=== PATIENT | female | born 1955 | race Native Hawaiian/Other Pacific Islander ===

== ENCOUNTER 2025-09-13 21:35 | Inpatient (IN) | payer MEDICARE ==
[~2025-09-13] VITALS: Ht 152.4 cm; Wt 63.5 kg
[2025-09-13] MEDS ORDERED: 0.9% SODIUM CHLORIDE 10 ML SYRINGE IVP PRN (21:45)
[2025-09-13 22:22] LABS: PLATELET COUNT (AUTO) 315 K/uL (150-450); RED BLOOD CELL COUNT(AUTO) 4.76 MIL/uL (4.00-5.20); RED CELL DISTRIBUTION WIDTH 14.5 % (11.5-14.5); WHITE BLOOD COUNT (AUTO) 11.1 K/uL (4.5-11.0)
[2025-09-13 22:23] LABS: CALCIUM, TOTAL 8.2 mg/dL (8.8-10.5); CREATININE 1.54 mg/dL (0.60-1.30); GLOMERULAR FILTR. RATE CALC 33.0 mL/min (>60); GLUCOSE,RANDOM 112.0 mg/dL (70-110); SODIUM SERUM 139.0 mmol/L (136-145); UREA NITROGEN, BLOOD 59.0 mg/dL (7-18)
[2025-09-13] MEDS: CefTRIAXone 1 GM/DEXTROSE 50 ML IV ONE (22:27)
[2025-09-13 22:31] LABS: LACTIC ACID 1.5 mmol/L (0.4-2.0)
[2025-09-13 22:32] LABS: TROPONIN I-HIGH SENSITIVITY 160 ng/L (<51)
[2025-09-13] MEDS: SODIUM CHLORIDE 0.9% 1,400 ML IV ONE (22:35)
[2025-09-13 23:22] LABS: APPEARANCE,URINE HAZY (CLEAR); GLUCOSE, URINE (UA) NEGATIVE (NEGATIVE); LEUKOCYTE ESTERASE ,URINE MODERATE (NEGATIVE); NITRATE,URINE NEGATIVE (NEGATIVE); OCCULT BLOOD,URINE SMALL (NEGATIVE); SPECIFIC GRAVITIY, URINE 1.014 (1.003-1.030)
[2025-09-13 23:33] LABS: SQUAMOUS EPITHELIAL CELL,UR Few /LPF (None Seen)
[2025-09-13 23:38] LABS: SULFOSALICYLIC ACID,URINE 4+ (Negative)
[2025-09-13] MEDS ORDERED: ONDANSETRON HCL 4 MG/2 ML VIAL IVP PRN (23:45)
[2025-09-13] MEDS ORDERED: ACETAMINOPHEN 325 MG TABLET PO PRN (23:45)
[2025-09-14] MEDS: HEPARIN SODIUM,PORCINE 5,000 UNITS/ML VIAL SQ SCH (00:38)
[2025-09-14] MEDS: RINGERS SOLUTION,LACTATED 1,000 ML IV SCH (00:41)
[2025-09-14] MEDS: ASPIRIN 81 MG CHEWABLE TABLET PO ONE (00:55)
[2025-09-14 01:55] LABS: TROPONIN I-HIGH SENSITIVITY 159 ng/L (<51)
[2025-09-14 05:31] LABS: PLATELET COUNT (AUTO) 267 K/uL (150-450); RED BLOOD CELL COUNT(AUTO) 4.17 MIL/uL (4.00-5.20); RED CELL DISTRIBUTION WIDTH 14.3 % (11.5-14.5); WHITE BLOOD COUNT (AUTO) 11.5 K/uL (4.5-11.0)
[2025-09-14 05:43] LABS: CALCIUM, TOTAL 7.6 mg/dL (8.8-10.5); CREATININE 1.35 mg/dL (0.60-1.30); GLOMERULAR FILTR. RATE CALC 39.0 mL/min (>60); GLUCOSE,RANDOM 172.0 mg/dL (70-110); SODIUM SERUM 142.0 mmol/L (136-145); UREA NITROGEN, BLOOD 57.0 mg/dL (7-18)
[2025-09-14 06:06] VITALS: BP 159/67; PULSE 85; RESP 18; TEMP 98.2; O2SAT 99
[2025-09-14 07:38] VITALS: BP 156/72; PULSE 88; RESP 19; TEMP 98; O2SAT 98
[2025-09-14] MEDS: CLOPIDOGREL BISULFATE 75 MG TABLET PO SCH (09:00)
[2025-09-14] MEDS: DOCUSATE SODIUM 100 MG CAPSULE PO SCH (09:00)
[2025-09-14] MEDS: ASPIRIN 81 MG CHEWABLE TABLET PO SCH (09:00)
[2025-09-14 12:03] VITALS: BP 148/68; PULSE 82; RESP 18; TEMP 98; O2SAT 98
[2025-09-14] MEDS ORDERED: RINGERS SOLUTION,LACTATED 1,000 ML IV SCH (14:45)
[2025-09-14 20:28] VITALS: BP 158/87; PULSE 99; RESP 18; TEMP 97.7; O2SAT 97
[2025-09-14] MEDS: SODIUM BICARBONATE 50 MEQ in SODIUM CHLORIDE 0.45% 1,000 ML IV ONE (20:28)
[2025-09-14] MEDS: ATORVASTATIN CALCIUM 40 MG TABLET PO SCH (20:29)
[2025-09-14] MEDS ORDERED: SODIUM CHLORIDE 0.9% 250 ML IV ONE (20:44)
[2025-09-14] MEDS: CefTRIAXone 1 GM/DEXTROSE 50 ML IV SCH (22:16)
[2025-09-15] VITALS (9 sets, daily range): BP systolic 149–190; BP diastolic 59–87; PULSE 76–105; RESP 16–18; TEMP 97.5–98.8; O2SAT 95–98
[2025-09-15] MEDS: LABETALOL HCL 5 MG/ML 20 ML VIAL IVP PRN (05:01)
[2025-09-15 06:44] LABS: PLATELET COUNT (AUTO) 264 K/uL (150-450); RED BLOOD CELL COUNT(AUTO) 4.04 MIL/uL (4.00-5.20); RED CELL DISTRIBUTION WIDTH 14.6 % (11.5-14.5); WHITE BLOOD COUNT (AUTO) 11.8 K/uL (4.5-11.0)
[2025-09-15 06:46] LABS: CALCIUM, TOTAL 8.1 mg/dL (8.8-10.5); CREATININE 1.48 mg/dL (0.60-1.30); GLOMERULAR FILTR. RATE CALC 35.0 mL/min (>60); GLUCOSE,RANDOM 223.0 mg/dL (70-110); SODIUM SERUM 145.0 mmol/L (136-145); UREA NITROGEN, BLOOD 53.0 mg/dL (7-18)
[2025-09-15 06:51] LABS: CHOL/HDL RATIO 4.3 (3.9-5.7); LDL CHOL (CALC.) 123.0 mg/dL (0-130)
[2025-09-15] MEDS: RINGERS SOLUTION,LACTATED 1,000 ML IV ONE (15:59)
[2025-09-15] MEDS ORDERED: NITROGLYCERIN 2% (1 GM=INCH) OINTMENT PACKET TP SCH (16:00)
[2025-09-15] MEDS: NITROGLYCERIN 2% (1 GM=INCH) OINTMENT PACKET TP SCH (16:12)
[2025-09-15 18:16] LABS: LACTIC ACID 0.9 mmol/L (0.4-2.0)
[2025-09-15] MEDS: CLOPIDOGREL BISULFATE 75 MG TABLET PO SCH (21:38)
[2025-09-15] MEDS: ASPIRIN 81 MG CHEWABLE TABLET PO SCH (21:38)
[2025-09-15] MEDS: ATORVASTATIN CALCIUM 40 MG TABLET PO SCH (21:38)
[2025-09-16] VITALS (9 sets, daily range): BP systolic 143–182; BP diastolic 61–90; PULSE 85–109; RESP 16–19; TEMP 98.1–98.8; O2SAT 94–99
[2025-09-16] MEDS ORDERED: DEXTROSE 50%-WATER 25 GM/50 ML SYRINGE IVP PRN
[2025-09-16] MEDS: RINGERS SOLUTION,LACTATED 1,000 ML IV ONE (00:55)
[2025-09-16 06:45] LABS: PHOSPHORUS 1.9 mg/dL (2.5-4.9)
[2025-09-16 06:46] LABS: CALCIUM, TOTAL 8.6 mg/dL (8.8-10.5); CREATININE 1.12 mg/dL (0.60-1.30); GLOMERULAR FILTR. RATE CALC 48.0 mL/min (>60); GLUCOSE,RANDOM 250.0 mg/dL (70-110); PLATELET COUNT (AUTO) 297 K/uL (150-450); RED BLOOD CELL COUNT(AUTO) 3.78 MIL/uL (4.00-5.20); RED CELL DISTRIBUTION WIDTH 14.7 % (11.5-14.5); SODIUM SERUM 150.0 mmol/L (136-145); UREA NITROGEN, BLOOD 34.0 mg/dL (7-18); WHITE BLOOD COUNT (AUTO) 12.7 K/uL (4.5-11.0)
[2025-09-16] MEDS: INSULIN LISPRO 100 UNITS/ML SQ PRN (06:46)
[2025-09-16] MEDS: SODIUM CHLORIDE 0.45% 1,000 ML IV SCH (08:46)
[2025-09-16 11:02] LABS: APPEARANCE,URINE CLEAR (CLEAR); GLUCOSE, URINE (UA) >=1000 mg/dL (NEGATIVE); LEUKOCYTE ESTERASE ,URINE NEGATIVE (NEGATIVE); NITRATE,URINE NEGATIVE (NEGATIVE); OCCULT BLOOD,URINE SMALL (NEGATIVE); SPECIFIC GRAVITIY, URINE 1.017 (1.003-1.030)
[2025-09-16 11:10] LABS: CREATININE,URINE RANDOM 61.3 mg/dL (30.0-125.0); PROTEIN,URINE RANDOM 147 mg/dL (0-11.9); UREA NITROGEN,URINE RANDOM 969 mg/dL (350-1000)
[2025-09-16 11:14] LABS: ALCOHOL, URINE DRUG SCREEN NEGATIVE (NEGATIVE); AMPHET/METH SCREEN,URINE NEGATIVE (NEGATIVE); BARBITURATE SCREEN, URINE NEGATIVE (NEGATIVE); CANNABINOID SCREEN,URINE NEGATIVE (NEGATIVE); COCAINE SCREEN,URINE NEGATIVE (NEGATIVE); METHADONE SCREEN, URINE NEGATIVE (NEGATIVE)
[2025-09-16 11:15] LABS: PH,URINE DRUG SCREEN 5.5 (5.0-8.0)
[2025-09-16 11:21] LABS: SULFOSALICYLIC ACID,URINE 1+ (Negative)
[2025-09-16 11:22] LABS: SQUAMOUS EPITHELIAL CELL,UR Few /LPF (None Seen)
[2025-09-16] MEDS: METOPROLOL TARTRATE 5 MG/5 ML VIAL IVP SCH (17:45)
[2025-09-16] MEDS: LORazepam 2 MG/ML VIAL IVP ONE (17:46)
[2025-09-16 20:16] LABS: GLUCOMETER DEV NAME(LOC) 5N.2C; GLUCOSE,POINT OF CARE 220 MG/DL (70-110)
[2025-09-16 20:16] LABS: GLUCOMETER DEV NAME(LOC) 5N.1D; GLUCOSE,POINT OF CARE 236 MG/DL (70-110)
[2025-09-16 20:16] LABS: GLUCOMETER DEV NAME(LOC) 5N.1D; GLUCOSE,POINT OF CARE 202 MG/DL (70-110)
[2025-09-16] MEDS: NITROGLYCERIN 2% (1 GM=INCH) OINTMENT PACKET TP SCH (20:53)
[2025-09-17 00:22] VITALS: BP 165/100; PULSE 98; RESP 18; TEMP 98.4; O2SAT 93
[2025-09-17 01:11] LABS: GLUCOMETER DEV NAME(LOC) 5N.1D; GLUCOSE,POINT OF CARE 186 MG/DL (70-110)
[2025-09-17 04:29] VITALS: BP 155/89; PULSE 82; RESP 16; TEMP 98.1; O2SAT 94
[2025-09-17 06:00] LABS: PLATELET COUNT (AUTO) 270 K/uL (150-450); RED BLOOD CELL COUNT(AUTO) 3.76 MIL/uL (4.00-5.20); RED CELL DISTRIBUTION WIDTH 14.9 % (11.5-14.5); WHITE BLOOD COUNT (AUTO) 9.4 K/uL (4.5-11.0)
[2025-09-17 06:28] LABS: CALCIUM, TOTAL 8.3 mg/dL (8.8-10.5); CREATININE 0.78 mg/dL (0.60-1.30); GLOMERULAR FILTR. RATE CALC > 60 mL/min (>60); GLUCOSE,RANDOM 229 mg/dL (70-110); SODIUM SERUM 147 mmol/L (136-145); UREA NITROGEN, BLOOD 24 mg/dL (7-18)
[2025-09-17 07:43] VITALS: BP 153/91; PULSE 75; RESP 16; TEMP 98.4; O2SAT 96
[2025-09-17 10:16] LABS: GLUCOMETER DEV NAME(LOC) 5N.1D; GLUCOSE,POINT OF CARE 225 MG/DL (70-110)
[2025-09-17 11:30] VITALS: BP 113/64; PULSE 76; RESP 16; TEMP 98.2; O2SAT 95
[2025-09-17 15:47] VITALS: BP 169/80; PULSE 74; RESP 18; TEMP 97.9; O2SAT 94
[2025-09-17 20:20] VITALS: BP 123/78; PULSE 74; RESP 16; TEMP 98.1; O2SAT 95
[2025-09-17 21:26] LABS: GLUCOMETER DEV NAME(LOC) 5N.1D; GLUCOSE,POINT OF CARE 160 MG/DL (70-110)
[2025-09-17 22:45] LABS: GLUCOMETER DEV NAME(LOC) 5N.1D; GLUCOSE,POINT OF CARE 164 MG/DL (70-110)
[2025-09-18] VITALS (9 sets, daily range): BP systolic 112–172; BP diastolic 66–95; PULSE 73–105; RESP 17–20; TEMP 97.5–98.6; O2SAT 96–99
[2025-09-18 02:51] LABS: GLUCOMETER DEV NAME(LOC) 5N.2C; GLUCOSE,POINT OF CARE 184 MG/DL (70-110)
[2025-09-18 02:51] LABS: GLUCOMETER DEV NAME(LOC) 5N.2C; GLUCOSE,POINT OF CARE 151 MG/DL (70-110)
[2025-09-18 02:51] LABS: GLUCOMETER DEV NAME(LOC) 5N.2C; GLUCOSE,POINT OF CARE 175 MG/DL (70-110)
[2025-09-18 05:50] LABS: GLUCOMETER DEV NAME(LOC) 5N.2C; GLUCOSE,POINT OF CARE 182 MG/DL (70-110)
[2025-09-18 06:14] LABS: PLATELET COUNT (AUTO) 294 K/uL (150-450); RED BLOOD CELL COUNT(AUTO) 4.02 MIL/uL (4.00-5.20); RED CELL DISTRIBUTION WIDTH 14.7 % (11.5-14.5); WHITE BLOOD COUNT (AUTO) 9.3 K/uL (4.5-11.0)
[2025-09-18 06:20] LABS: CALCIUM, TOTAL 8.2 mg/dL (8.8-10.5); CREATININE 0.71 mg/dL (0.60-1.30); GLOMERULAR FILTR. RATE CALC > 60 mL/min (>60); GLUCOSE,RANDOM 187 mg/dL (70-110); SODIUM SERUM 143 mmol/L (136-145); UREA NITROGEN, BLOOD 24 mg/dL (7-18)
[2025-09-18 06:29] LABS: PHOSPHORUS 2.2 mg/dL (2.5-4.9)
[2025-09-18] MEDS: DOCUSATE SODIUM 100 MG/10 ML LIQUID UDCUP NG SCH (11:21)
[2025-09-18] MEDS: SODIUM,POTASSIUM PHOSPHATES POWDER PACKET PO SCH (11:21)
[2025-09-18] MEDS: MAGNESIUM SULFATE 2 GM/WATER 50 ML IV ONE (11:22)
[2025-09-18] MEDS ORDERED: ACETAMINOPHEN 325 MG TABLET NG PRN (11:45)
[2025-09-18 15:31] LABS: PH,URINE DRUG SCREEN 6.0 (5.0-8.0)
[2025-09-18 15:33] LABS: CREATININE,URINE RANDOM 55.2 mg/dL (30.0-125.0)
[2025-09-18 15:38] LABS: AMPHET/METH SCREEN,URINE NEGATIVE (NEGATIVE); BARBITURATE SCREEN, URINE NEGATIVE (NEGATIVE); CANNABINOID SCREEN,URINE NEGATIVE (NEGATIVE); COCAINE SCREEN,URINE NEGATIVE (NEGATIVE); METHADONE SCREEN, URINE NEGATIVE (NEGATIVE)
[2025-09-18 15:42] LABS: ALCOHOL, URINE DRUG SCREEN NEGATIVE (NEGATIVE)
[2025-09-18 18:01] LABS: GLUCOMETER DEV NAME(LOC) 5N.1D; GLUCOSE,POINT OF CARE 185 MG/DL (70-110)
[2025-09-18 20:35] LABS: GLUCOMETER DEV NAME(LOC) 5N.2C; GLUCOSE,POINT OF CARE 206 MG/DL (70-110)
[2025-09-18 21:55] LABS: GLUCOMETER DEV NAME(LOC) 5N.1D; GLUCOSE,POINT OF CARE 172 MG/DL (70-110)
[2025-09-19] VITALS (7 sets, daily range): BP systolic 129–156; BP diastolic 62–77; PULSE 71–87; RESP 16–18; TEMP 97.5–97.9; O2SAT 95–98
[2025-09-19 05:56] LABS: GLUCOMETER DEV NAME(LOC) 5N.1D; GLUCOSE,POINT OF CARE 120 MG/DL (70-110)
[2025-09-19 05:56] LABS: GLUCOMETER DEV NAME(LOC) 5N.1D; GLUCOSE,POINT OF CARE 154 MG/DL (70-110)
[2025-09-19 06:39] LABS: PLATELET COUNT (AUTO) 241 K/uL (150-450); RED BLOOD CELL COUNT(AUTO) 3.69 MIL/uL (4.00-5.20); RED CELL DISTRIBUTION WIDTH 14.3 % (11.5-14.5); WHITE BLOOD COUNT (AUTO) 7.5 K/uL (4.5-11.0)
[2025-09-19 06:59] LABS: CALCIUM, TOTAL 7.8 mg/dL (8.8-10.5); CREATININE 0.53 mg/dL (0.60-1.30); GLOMERULAR FILTR. RATE CALC > 60 mL/min (>60); GLUCOSE,RANDOM 147 mg/dL (70-110); SODIUM SERUM 143 mmol/L (136-145); UREA NITROGEN, BLOOD 22 mg/dL (7-18)
[2025-09-19 07:42] LABS: PHOSPHORUS 3.1 mg/dL (2.5-4.9)
[2025-09-19] MEDS: ATORVASTATIN CALCIUM 40 MG TABLET NG SCH (08:54)
[2025-09-19] MEDS: ASPIRIN 81 MG CHEWABLE TABLET NG SCH (08:55)
[2025-09-19] MEDS: LACTULOSE 20 GM/30 ML SOLUTION UDCUP PO PRN (12:34)
[2025-09-19 12:45] LABS: GLUCOMETER DEV NAME(LOC) 5N.1D; GLUCOSE,POINT OF CARE 163 MG/DL (70-110)
[2025-09-19 12:58] LABS: CALCIUM, TOTAL 7.9 mg/dL (8.8-10.5); CREATININE 0.51 mg/dL (0.60-1.30); GLOMERULAR FILTR. RATE CALC > 60 mL/min (>60); GLUCOSE,RANDOM 140 mg/dL (70-110); SODIUM SERUM 142 mmol/L (136-145); UREA NITROGEN, BLOOD 21 mg/dL (7-18)
[2025-09-19 13:03] LABS: ASPARTATE AMINOTRANSFERASE 23 U/L (15-37); TOTAL PROTEIN, SERUM 5.9 g/dL (6.4-8.2)
[2025-09-19 17:16] LABS: GLUCOMETER DEV NAME(LOC) 5N.1D; GLUCOSE,POINT OF CARE 133 MG/DL (70-110)
[2025-09-19 20:26] LABS: GLUCOMETER DEV NAME(LOC) 5N.1D; GLUCOSE,POINT OF CARE 129 MG/DL (70-110)
[2025-09-20 03:45] VITALS: BP 152/80; PULSE 74; RESP 17; TEMP 97.9; O2SAT 96
[2025-09-20 05:39] VITALS: BP 149/74; RESP 17
[2025-09-20 06:10] LABS: GLUCOMETER DEV NAME(LOC) 5N.1D; GLUCOSE,POINT OF CARE 122 MG/DL (70-110)
[2025-09-20 07:30] LABS: PLATELET COUNT (AUTO) 230 K/uL (150-450); RED BLOOD CELL COUNT(AUTO) 3.68 MIL/uL (4.00-5.20); RED CELL DISTRIBUTION WIDTH 14.5 % (11.5-14.5); WHITE BLOOD COUNT (AUTO) 7.5 K/uL (4.5-11.0)
[2025-09-20 07:48] LABS: CALCIUM, TOTAL 7.7 mg/dL (8.8-10.5); CREATININE 0.50 mg/dL (0.60-1.30); GLOMERULAR FILTR. RATE CALC > 60 mL/min (>60); GLUCOSE,RANDOM 122 mg/dL (70-110); SODIUM SERUM 142 mmol/L (136-145); UREA NITROGEN, BLOOD 14 mg/dL (7-18)
[2025-09-20 08:01] LABS: PHOSPHORUS 2.7 mg/dL (2.5-4.9)
[2025-09-20 08:19] VITALS: BP 155/80; PULSE 78; RESP 16; TEMP 98.1; O2SAT 98
[2025-09-20 11:27] VITALS: BP 141/75; PULSE 75; RESP 16; TEMP 98.2; O2SAT 96
[2025-09-20 14:36] LABS: GLUCOMETER DEV NAME(LOC) 5N.2C; GLUCOSE,POINT OF CARE 148 MG/DL (70-110)
[2025-09-20 15:50] VITALS: BP 129/63; PULSE 80; RESP 17; TEMP 98.2; O2SAT 96
[2025-09-20 18:15] LABS: GLUCOMETER DEV NAME(LOC) 5N.1D; GLUCOSE,POINT OF CARE 181 MG/DL (70-110)
[2025-09-20 20:28] VITALS: BP 125/56; PULSE 78; RESP 17; TEMP 98.1; O2SAT 98
[2025-09-20 22:01] LABS: GLUCOMETER DEV NAME(LOC) 5N.1D; GLUCOSE,POINT OF CARE 154 MG/DL (70-110)
[2025-09-21 00:52] VITALS: BP 143/64; PULSE 76; RESP 17; TEMP 98.2; O2SAT 97
[2025-09-21 04:00] VITALS: BP 148/67; PULSE 74; RESP 17; TEMP 98.1; O2SAT 97
[2025-09-21 06:41] LABS: GLUCOMETER DEV NAME(LOC) 5N.1D; GLUCOSE,POINT OF CARE 187 MG/DL (70-110)
[2025-09-21 06:59] LABS: PLATELET COUNT (AUTO) 238 K/uL (150-450); RED BLOOD CELL COUNT(AUTO) 3.57 MIL/uL (4.00-5.20); RED CELL DISTRIBUTION WIDTH 14.0 % (11.5-14.5); WHITE BLOOD COUNT (AUTO) 7.5 K/uL (4.5-11.0)
[2025-09-21 07:08] LABS: PHOSPHORUS 3.1 mg/dL (2.5-4.9)
[2025-09-21 07:18] LABS: CALCIUM, TOTAL 8.0 mg/dL (8.8-10.5); CREATININE 0.50 mg/dL (0.60-1.30); GLOMERULAR FILTR. RATE CALC > 60 mL/min (>60); GLUCOSE,RANDOM 186 mg/dL (70-110); SODIUM SERUM 142 mmol/L (136-145); UREA NITROGEN, BLOOD 14 mg/dL (7-18)
[2025-09-21 08:30] VITALS: BP 138/67; PULSE 75; RESP 16; TEMP 98.2; O2SAT 96
[2025-09-21 12:15] VITALS: BP 142/72; PULSE 71; RESP 16; TEMP 98.4; O2SAT 96
[2025-09-21 15:17] VITALS: BP 133/57; PULSE 68; RESP 19; TEMP 97.6; O2SAT 96
[2025-09-21 19:51] LABS: GLUCOMETER DEV NAME(LOC) 5S.1E; GLUCOSE,POINT OF CARE 197 MG/DL (70-110)
[2025-09-21 19:51] LABS: GLUCOMETER DEV NAME(LOC) 5S.1E; GLUCOSE,POINT OF CARE 182 MG/DL (70-110)
[2025-09-21 20:00] VITALS: BP 138/68; PULSE 72; RESP 18; TEMP 98.2; O2SAT 96
[2025-09-21 20:16] LABS: GLUCOMETER DEV NAME(LOC) 5S.1E; GLUCOSE,POINT OF CARE 162 MG/DL (70-110)
[2025-09-22 00:45] VITALS: BP 145/65; PULSE 63; RESP 18; TEMP 97.7; O2SAT 96
[2025-09-22 04:07] VITALS: BP 145/90; PULSE 84; RESP 18; O2SAT 95
[2025-09-22 08:34] VITALS: BP 143/68; PULSE 73; RESP 18; TEMP 97.9; O2SAT 96
[2025-09-22] MEDS: SODIUM CHLORIDE 0.9% 500 ML IV ONE (11:46)
[2025-09-22] MEDS: CHLORHEXIDINE GLUCONATE 2% TOWELETTE [2'S/6'S] TP ONE (11:46)
[2025-09-22 12:07] VITALS: BP 128/52; PULSE 67; RESP 17; TEMP 98; O2SAT 97
[2025-09-22 16:08] VITALS: BP 131/60; PULSE 68; RESP 18; TEMP 97.9; O2SAT 96
[2025-09-22 18:41] LABS: PLATELET COUNT (AUTO) 233 K/uL (150-450); RED BLOOD CELL COUNT(AUTO) 3.69 MIL/uL (4.00-5.20); RED CELL DISTRIBUTION WIDTH 14.0 % (11.5-14.5); WHITE BLOOD COUNT (AUTO) 8.3 K/uL (4.5-11.0)
[2025-09-22 18:45] LABS: CALCIUM, TOTAL 8.0 mg/dL (8.8-10.5); CREATININE 0.75 mg/dL (0.60-1.30); GLOMERULAR FILTR. RATE CALC > 60 mL/min (>60); GLUCOSE,RANDOM 212 mg/dL (70-110); SODIUM SERUM 136 mmol/L (136-145); UREA NITROGEN, BLOOD 14 mg/dL (7-18)
[2025-09-22 19:28] LABS: PHOSPHORUS 3.2 mg/dL (2.5-4.9)
[2025-09-22 20:09] VITALS: BP 149/75; PULSE 86; RESP 17; TEMP 98.6; O2SAT 94
[2025-09-22 20:50] LABS: GLUCOMETER DEV NAME(LOC) 5S.2E; GLUCOSE,POINT OF CARE 193 MG/DL (70-110)
[2025-09-22 22:56] LABS: GLUCOMETER DEV NAME(LOC) 5N.1D; GLUCOSE,POINT OF CARE 224 MG/DL (70-110)
[2025-09-22 23:46] LABS: GLUCOMETER DEV NAME(LOC) 5S.1E; GLUCOSE,POINT OF CARE 122 MG/DL (70-110)
[2025-09-23] VITALS: BP 157/74; PULSE 83; RESP 18; TEMP 98.1; O2SAT 94
[2025-09-23] LABS: GLUCOMETER DEV NAME(LOC) 5S.2E; GLUCOSE,POINT OF CARE 167 MG/DL (70-110)
[2025-09-23 04:17] VITALS: BP 141/78; PULSE 79; RESP 17; TEMP 98.2; O2SAT 93
[2025-09-23 08:21] VITALS: BP 151/82; PULSE 69; RESP 18; TEMP 98; O2SAT 94
[2025-09-23] MEDS ORDERED: SODIUM CHLORIDE 0.9% 1,000 ML ONE (10:24)
[2025-09-23] MEDS ORDERED: MAGNESIUM SULFATE 4 GM/WATER 100 ML IV PRN (11:15)
[2025-09-23 11:50] VITALS: BP 142/94; PULSE 76; RESP 18; TEMP 98.2; O2SAT 94
[2025-09-23] MEDS ORDERED: LIDOCAINE/PF 2% 5 ML VIAL ONE (12:00)
[2025-09-23] MEDS ORDERED: PROPOFOL 1% 20 ML VIAL IVP ONE (12:00)
[2025-09-23 12:31] LABS: GLUCOMETER DEV NAME(LOC) 5S.2E; GLUCOSE,POINT OF CARE 173 MG/DL (70-110)
[2025-09-23] MEDS: SODIUM CHLORIDE 0.9% 1,000 ML IV ONE (14:03)
[2025-09-23 14:11] LABS: GLUCOMETER DEV NAME(LOC) 5N.2C; GLUCOSE,POINT OF CARE 173 MG/DL (70-110)
[2025-09-23 14:26] LABS: GLUCOMETER DEV NAME(LOC) SDS.; GLUCOSE,POINT OF CARE 169 MG/DL (70-110)
[2025-09-23] MEDS: LIDOCAINE 1% 10 ML VIAL PERC ONE (15:00)
[2025-09-23 22:36] LABS: GLUCOMETER DEV NAME(LOC) 5S.1E; GLUCOSE,POINT OF CARE 184 MG/DL (70-110)
[2025-09-24] VITALS (7 sets, daily range): BP systolic 114–142; BP diastolic 56–70; PULSE 77–101; RESP 16–18; TEMP 97.5–99.3; O2SAT 94–97
[2025-09-24 05:06] LABS: GLUCOMETER DEV NAME(LOC) 5N.2C; GLUCOSE,POINT OF CARE 154 MG/DL (70-110)
[2025-09-24 05:50] LABS: GLUCOMETER DEV NAME(LOC) 5S.1E; GLUCOSE,POINT OF CARE 207 MG/DL (70-110)
[2025-09-24] MEDS: MAGNESIUM SULFATE 2 GM/WATER 50 ML IV PRN (06:24)
[2025-09-24] MEDS: POVIDONE-IODINE 10% 120 ML SOLUTION TP SCH (08:11)
[2025-09-24] MEDS: HYDROGEN PEROXIDE 3% 473 ML SOLUTION TP SCH (08:11)
[2025-09-24] MEDS ORDERED: ACETAMINOPHEN 650 MG/20.3 ML SOLUTION UDCUP PEG PRN (11:45)
[2025-09-24] MEDS: MAGNESIUM OXIDE 400 MG TABLET PO PRN (11:58)
[2025-09-24 12:06] LABS: GLUCOMETER DEV NAME(LOC) 5S.2E; GLUCOSE,POINT OF CARE 217 MG/DL (70-110)
[2025-09-24] MEDS ORDERED: LACTULOSE 20 GM/30 ML SOLUTION UDCUP PEG PRN (12:15)
[2025-09-24 17:40] LABS: GLUCOMETER DEV NAME(LOC) 5S.2E; GLUCOSE,POINT OF CARE 213 MG/DL (70-110)
[2025-09-24] MEDS: DOCUSATE SODIUM 100 MG/10 ML LIQUID UDCUP PEG SCH (21:00)
[2025-09-25 05:02] VITALS: BP 119/60; PULSE 84; RESP 18; TEMP 98.1; O2SAT 97
[2025-09-25 05:35] LABS: GLUCOMETER DEV NAME(LOC) 4E.2; GLUCOSE,POINT OF CARE 202 MG/DL (70-110)
[2025-09-25 06:51] LABS: GLUCOMETER DEV NAME(LOC) 5S.1E; GLUCOSE,POINT OF CARE 208 MG/DL (70-110)
[2025-09-25 08:28] VITALS: BP 116/68; PULSE 82; RESP 18; TEMP 98; O2SAT 98
[2025-09-25] MEDS: METOPROLOL TARTRATE 25 MG TABLET GT SCH (09:21)
[2025-09-25] MEDS: ASPIRIN 81 MG CHEWABLE TABLET PEG SCH (09:21)
[2025-09-25] MEDS: ATORVASTATIN CALCIUM 40 MG TABLET PEG SCH (09:22)
[2025-09-25 11:45] LABS: GLUCOMETER DEV NAME(LOC) 4E.2; GLUCOSE,POINT OF CARE 238 MG/DL (70-110)
[2025-09-25] MEDS: CLOPIDOGREL BISULFATE 75 MG TABLET GT SCH (16:28)
[2025-09-25 18:01] LABS: GLUCOMETER DEV NAME(LOC) 4S.2; GLUCOSE,POINT OF CARE 252 MG/DL (70-110)
[2025-09-25 20:00] VITALS: BP 102/55; PULSE 115; RESP 16; TEMP 98.1; O2SAT 97
[2025-09-25 21:45] LABS: GLUCOMETER DEV NAME(LOC) 4S.2; GLUCOSE,POINT OF CARE 255 MG/DL (70-110)
[2025-09-26 04:00] VITALS: BP 96/63; PULSE 101; RESP 16; TEMP 99.1; O2SAT 95
[2025-09-26 05:36] LABS: GLUCOMETER DEV NAME(LOC) 4S.2; GLUCOSE,POINT OF CARE 302 MG/DL (70-110)
[2025-09-26 07:46] VITALS: BP 79/52; PULSE 68; RESP 18; TEMP 98.1; O2SAT 97
[2025-09-26 09:21] LABS: CALCIUM, TOTAL 7.5 mg/dL (8.8-10.5); CREATININE 1.25 mg/dL (0.60-1.30); GLOMERULAR FILTR. RATE CALC 42 mL/min (>60); GLUCOSE,RANDOM 305 mg/dL (70-110); PLATELET COUNT (AUTO) 188 K/uL (150-450); RED BLOOD CELL COUNT(AUTO) 1.13 MIL/uL (4.00-5.20); RED CELL DISTRIBUTION WIDTH 14.9 % (11.5-14.5); SODIUM SERUM 150 mmol/L (136-145); UREA NITROGEN, BLOOD 92 mg/dL (7-18); WHITE BLOOD COUNT (AUTO) 20.2 K/uL (4.5-11.0)
[2025-09-26 09:31] LABS: TROPONIN I-HIGH SENSITIVITY 151 ng/L (<51)
[2025-09-26 10:02] LABS: RBC MORPHOLOGY COMMENT ABNORMAL RBC MORPH
[2025-09-26] MEDS ORDERED: EPINEPHrine 1:10,000 [1 MG/10 ML] SYRINGE ONE (12:00)
[2025-09-26] MEDS ORDERED: ATROPINE SULFATE 1 MG/ML VIAL ONE (12:00)
[2025-09-26] MEDS ORDERED: CALCIUM GLUCONATE 100 MG/ML 10 ML IVP ONE (12:00)
== END 2025-09-26 08:20 | DRG 64 ==
LOC: EMS 22:15 → EDH 23:43 → 5N 09-14 06:00 → 4E 09-24 22:21
PROVIDERS: ADMIT Internal Medicine; ATTEND Internal Medicine
PROC: 05HA33Z Insertion of Infusion Device into Left Brachial Vein, Percutaneous Approach (ICD-10-PCS; 2025-09-14)
PROC: 0DH63UZ Insertion of Feeding Device into Stomach, Percutaneous Approach (ICD-10-PCS; principal; 2025-09-23 15:00)
DX: I63.9 Cerebral infarction, unspecified (principal); E43 Unspecified severe protein-calorie malnutrition; G93.41 Metabolic encephalopathy; N17.0 Acute kidney failure with tubular necrosis; E87.20 Acidosis, unspecified; E87.0 Hyperosmolality and hypernatremia; K92.2 Gastrointestinal hemorrhage, unspecified; R65.10 Systemic inflammatory response syndrome (SIRS) of non-infectious origin without acute organ dysfunction; I46.9 Cardiac arrest, cause unspecified; R57.0 Cardiogenic shock; I10 Essential (primary) hypertension; R13.10 Dysphagia, unspecified; E11.9 Type 2 diabetes mellitus without complications; E83.39 Other disorders of phosphorus metabolism; E83.42 Hypomagnesemia; Z93.1 Gastrostomy status; Z68.27 Body mass index [BMI] 27.0-27.9, adult
CPT/HCPCS: 36245; 36569; 70450; 70551; 71045; 74018; 76700; 76770; 76937; 80048; 80053; 80061; 80307; 81001; 81002; 82040; 82140; 82330; 82550; 82570; 82962; 83036; 83605; 83735; 83880; 83930; 84100; 84145; 84156; 84300; 84484; 84540; 85025; 85610; 87040; 87081; 87086; 93005; 93306; 96365; 97163; 97167; 97530; 97535; 99285; G0378; G0480; J0169; J0360; J0461; J0610; J0696; J1644; J2060; J2704; J3475; J3490; J7030; J7050; J7120; 36415-L1; 36415-TC